=== PATIENT | female | born 1970 | race Caucasian/White ===

== ENCOUNTER 2016-12-31 10:57 | Emergency (ER) | payer SELFPAY ==
[~2016-12-31] VITALS: Ht 152.4 cm; Wt 60.0 kg
[~2016-12-31 10:57] MED LIST: METHADONE
[2016-12-31] MEDS ORDERED: SILVER NITRATE APPLICATOR STICK TOP ONE (12:00)
[2016-12-31 14:26] VITALS: BP 119/71
== END 2016-12-31 14:28 | disposition home or self-care (01) ==
LOC: ER 10:57
DX: I83.892 Varicose veins of left lower extremity with other complications (principal)
CPT/HCPCS: 99283; Z7610